=== PATIENT | female | born 1985 | race Caucasian/White ===

== ENCOUNTER 2017-06-20 10:10 | Inpatient (IN) | payer BC ==
[2017-06-20] MEDS ORDERED: Sodium Chloride 0.9% 10 ML Syringe FLUSH PRN (11:20)
[2017-06-20] MEDS ORDERED: Oxytocin/Lactated Ringers 10 UNIT/1,000 ML BAG IV SCH ×2 (11:30→17:30)
[2017-06-20] MEDS ORDERED: Lactated Ringers 1,000 ML IV SCH (11:30)
--- NOTE | 2017-06-20 13:23 | PCM.LDHP ---
L&D History of Present Illness - General Date of Service: 06/20/17 Admit Problem/Dx: Patient Status Order with Admit Dx/Problem 06/20/17 11:20 Patient Status [ADT] Routine Admission Diagnosis/Problem Admission Diagnosis/Problem 06/20/17 13:11 Minerva is a 31-year-old 2 para 1001 white female who is admitted for elective induction of labor today. Her CASPER is 06/25/2017 placing her at 39-2/7 weeks gestational age. Patient's CASPER is determined by 6-6/7 week ultrasound. This supported by a second ultrasound done at 22 weeks and a third ultrasound done at 35 weeks. At the present time she is 3 cm, 90% effaced, -3 station, mid position, very soft, bulging bag menjivar, anterior to mid position. Rupture membranes undertaken with resultant clear amniotic fluid. 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 Strep. Was not completely no 1 as it was approximated. She does have monthly cycles. Patient normal menarche. Her last delivery was on 10/09/2014 at 38 weeks gestational age after 16 hours of labor. She delivered a 7 lbs. 0 oz. female via in [place]. Child's name is Hodan. Her course has been relatively unremarkable. She is a centering program participant. Her first visit was on 2016 at 6-6/7 weeks' gestational age. She was seen on a regular basis in the centering program. Her weight gain was from a pre- weight of 221 pounds to a final weight of 227 pounds for a weight gain of a prosthesis 6 pounds. She made good fundal height growth and her vital signs remained stable throughout the care. Patient's group B strep screen is negative. She did have gestational diabetes but was under good control with diet modification and with the addition of glyburide in just the last 2 weeks. She is taking glyburide 2.5 mg tablets at bedtime.. She has history of hemorrhage during which been manageable. She plans to breast-feed. Patient wants to deliver naturally if possible. She had a rn clinical review delivery with no pain control and was discharged 4 hours after delivery with her last . Laboratory testing and cysts of blood which is A+ with a negative antibody screen. First hemoglobin is 13.7 g/dL. Platelets were 265, 000. She is rubella immune. RPR is nonreactive. Urine culture was unremarkable. Dates B surface antigen and HIV assays were negative. Patient's chlamydia and gonorrhea assays were both negative. Second trimester laboratory testing showed hemoglobin 12.7 and platelets of 229,000. Her diabetic screening test was elevated at 166. Her three-hour glucose tolerance test showed a fasting blood sugar of 97, a 1 hour blood sugar of 148, a 2 hour blood sugar of 210 and a three-hour glucose of 72. Her group B strep screen was negative. She was started on diet alone but towards the end of the her a.m. blood sugars were higher than desired and she was started on glyburide 2.5 mg daily at bedtime which led to normal blood sugars in a.m. Present under good control. Allergies none Medications: 1. Glyburide 2.5 mg at at bedtime 2. vitamins daily Past medical history: 1. Normal spontaneous vaginal delivery 2014 2. Cervical dysplasia status post LEEP 2008 3. Seasonal allergies Past surgical history: 1. LEEP 2008 Family history: Mother the baby has a cousin with spina bifida and a brother with congenital heart defects. Mom is alive and well but has had a questionable stroke and is on blood thinners. Vitamin well but smokes. One brother with heart defect as described above. 2 sisters with depression history. Paternal grandmother is alive and with history of stroke. Maternal grandfather is alive with macular degeneration. Also has had hip surgery. Paternal grandmother alive with breast cancer. She is status post mastectomy. Paternal grandfather with stent placement in his heart secondary to heart disease. No bleeding, clotting, anesthesia, her asthma problems noted in the family. Social history the patient is , lives in [facility]. She does not use significant alcohol, drugs or tobacco. 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 Review of systems: In general patient is having some contractions but is doing well. Skin: Negative Respiratory: No infectious or shortness of breath symptoms noted. Cardiovascular: No chest pain or exercise intolerance noted. Breasts: Changes also brings only patient plans to breast-feed GI: Negative : Changes socio-principal Musca skeletal: Occasional edema noted in the lower extremities Neurological: Negative Physical exam: In general patient is a well-nourished pleasant status distress. Skin is warm dry without lesions. HEENT, neck and back within normal limits Lungs are clear with good breath sounds in all lung tsai. Cardiovascular exam shows regular rate and rhythm without. Breast exam done at the beginning of and found to be normal. It is not repeated at this time. Abdomen is protuberant . Her fundal height is consistent with 39 weeks gestation. Cervix is as stated above. Extremities and neurological exam are grossly within normal limits. - Related Data Allergies/Adverse Reactions: Allergies Allergy/AdvReac Type Severity Reaction Status Date / Time banana Allergy Hives Verified 06/20/17 11:20 Past Medical History PROTECTION OFFICER History: Reports: Endocrine/Metabolic History: Reports: Diabetes, Gestational Dermatologic History: Reports: Eczema Social & Family History - Family History Family Medical History: Noncontributory H&P Review of Systems - Review of Systems: Review Of Systems: See Below L&D Exam - Exam Exam: See Below - Vital Signs Vital Signs: Last Vital Signs Temp 36.4 C 06/20/17 10:44 Pulse 109 H 06/20/17 10:44 Resp 20 06/20/17 10:44 BP 135/73 06/20/17 10:44 Pulse Ox 97 06/20/17 10:44 Weight: 104.372 kg - Patient Data Lab Results Last 24 hrs: Laboratory Results - last 24 hr 06/20/17 Range/Units 12:10 WBC 7.47 (3.98-10.04) K/mm3 RBC 4.63 (3.98-5.22) M/mm3 Hgb 13.8 (11.2-15.7) gm/L Hct 40.0 (34.1-44.9) % MCV 86.4 (79.4-94.8) fl MCH 29.8 (25.6-32.2) pg MCHC 34.5 (32.2-35.5) g/dl RDW Std Deviation 39.3 (36.4-46.3) fL Plt Count 205 (182-369) K/mm3 MPV 8.8 L (9.4-12.3) fl Neut % (Auto) 75.0 H (34.0-71.1) % Lymph % (Auto) 18.5 L (19.3-51.7) % Norton % (Auto) 5.2 (4.7-12.5) % Eos % (Auto) 0.9 (0.7-5.8) Baso % (Auto) 0.3 (0.1-1.2) % Neut # (Auto) 5.60 (1.56-6.13) K/mm3 Lymph # (Auto) 1.38 (1.18-3.74) K/mm3 Norton # (Auto) 0.39 H (0.24-0.36) K/mm3 Eos # (Auto) 0.07 (0.04-0.36) K/mm3 Baso # (Auto) 0.02 (0.01-0.08) K/mm3 Result Diagrams: 06/20/17 12:10 Problem List Initiated/Reviewed/Updated: Yes Orders Last 24hrs: Active Orders 24 hr Category Date Time Status Patient Status [ADT] Routine ADT 06/20/17 11:20 Active Activity as Tolerated [RC] PFP Care 06/20/17 11:20 Active Communication Order [RC] ASDIRECTED Care 06/20/17 11:20 Active Heart Tones [RC] ASDIRECTED Care 06/20/17 11:21 Active Notify Provider [RC] PFP Care 06/20/17 11:20 Active Notify Provider [RC] PRN Care 06/20/17 11:20 Active Peripheral IV Care [RC] . DIRECTED Care 06/20/17 11:21 Active Vital Signs [RC] PER UNIT ROUTINE Care 06/20/17 11:20 Active Regular Diet [DIET] Diet 06/20/17 Lunch Active Lactated Ringers [Ringers, Lactated] 1,000 ml Med 06/20/17 11:30 Active IV ASDIRECTED Oxytocin/Lactated Ringers [Pitocin in LR 10 Units/1,000 Med 06/20/17 11:30 Active ML] 10 unit in 1,000 ml IV .CONTINUOUS Sodium Chloride 0.9% [Saline Flush] Med 06/20/17 11:20 Active 10 ml FLUSH ASDIRECTED PRN Electronic Heart Tones Ext w TOCO [WOMSER] Oth 06/20/17 11:20 Ordered Routine Electronic Heart Tones Internal [WOMSER] Per Unit Oth 06/20/17 11:20 Ordered Routine Peripheral IV Insertion Adult [OM.PC] Routine Oth 06/20/17 11:20 Ordered Resuscitation Status Routine Resus Stat 06/20/17 11:20 Ordered Medication Orders Lactated Ringer's (Ringers, Lactated) 1,000 mls @ 100 mls/hr IV ASDIRECTED CLAUDIO Oxytocin/Lactated Ringer's (Pitocin In Lr 10 Units/1,000 Ml) 10 unit in 1,000 mls @ 500 mls/hr IV .CONTINUOUS CLAUDIO Sodium Chloride (Saline Flush) 10 ml FLUSH ASDIRECTED PRN PRN Reason: Keep Vein Open Assessment/Plan Comment:: Assessment: 1. 39-2/7 week intrauterine , elective induction of labor 2. Group B strep screen negative 3. Patient would like natural labor. 4. The patient plans to breast-feed 5. Rubella immune Plan: 1. Anticipate normal spontaneous vaginal delivery. 2. Natural childbirth per patient desire 3. Patient plans to breast-feed
[2017-06-20] MEDS ORDERED: Lidocaine 1% 50 ML MDV ONE (20:40)
[2017-06-20] MEDS ORDERED: Lidocaine 1% 50 ML MDV INJECT ONE (22:02)
--- NOTE | 2017-06-20 22:33 | PCM.SN ---
- Free Text/Narrative Note: Delivery note: Minerva is a 31-year-old 2 now para 2002 white female who was admitted at 39-2/7 weeks gestational age (CASPER 06/25/2017) (for an elective induction. She has a history of gestational diabetes on glyburide and was induced for this reason. On admission her cervix was 3 cm and 90% effaced. Patient was initially induced with artificial rupture of membranes which resulted in clear amniotic fluid. Pitocin was added to augment the labor. Patient did well and progressed continuously until complete cervical dilation by approximately 2145 hrs. She pushed 2 contractions and delivered a viable, [place], female infant with Apgars of 7 and 9, weight of 3360 g (7 pounds 6.5 ounces) in a left occiput anterior position. The baby delivered at 2157 hrs. on 06/20/2017. Baby was placed on mom's abdomen. The cord was allowed to pulsate until it stopped than was clamped 2 and cut. Cord blood was obtained. At the time of delivery Pitocin was started IV to facilitate increase in uterine tone and decrease likelihood of bleeding. The patient was noted to have second-degree laceration which was repaired after infiltration with approximately 8 mL of lidocaine 1%. It was repaired in a routine fashion using 3-0 Monocryl suture. Placenta delivered in a Abbott presentation. It appeared intact and complete and was discarded per patient preference. Estimated blood loss was 100 mL. Condition: Good. Patient plans to breast-feed.
[2017-06-20] MEDS ORDERED: Lanolin 100% Cream 7 GM Tube TOP PRN (22:35)
[2017-06-20] MEDS ORDERED: Benzocaine/Menthol 20%-0.5% Spray 56 GM Canister TOP PRN (22:35)
[2017-06-20] MEDS ORDERED: Witch Hazel Medicated Pads 100/Jar TOP PRN (22:35)
[2017-06-20] MEDS ORDERED: Docusate Sodium 100 MG Cap PO PRN (22:35)
[2017-06-20] MEDS ORDERED: Acetaminophen 325 MG Tab PO PRN (22:35)
[2017-06-20] MEDS: Ibuprofen 600 MG Tab PO PRN (22:48)
[2017-06-21] MEDS: Ibuprofen 600 MG Tab PO PRN ×4 (04:03→21:00)
[2017-06-21] MEDS ORDERED: Prenatal Multivitamin with Calcium/Folic Acid/Iron Tab PO SCH (09:00)
--- NOTE | 2017-06-21 09:56 | PCM.SN ---
- Free Text/Narrative Note: No concerns. Mimimal lochia, voiding well. Ambulating well Afeb, CSS Abdomen-soft, NT legs-NT A/P: PPD #1-normal recovery. Routine cares.
[2017-06-22] MEDS: Ibuprofen 600 MG Tab PO PRN (03:57)
--- NOTE | 2017-06-22 05:50 | PCM.DCSUM1 ---
Discharge Summary - Hospital Course Free Text/Narrative:: Minerva is a 31-year-old 2 now para 2002 white female who was admitted at 39-2/7 weeks gestational age (CASPER 06/25/2017) (for an elective induction. She has a history of gestational diabetes on glyburide and was induced for this reason. On admission her cervix was 3 cm and 90% effaced. Patient was initially induced with artificial rupture of membranes which resulted in clear amniotic fluid. Pitocin was added to augment the labor. Patient did well and progressed continuously until complete cervical dilation by approximately 2145 hrs. She pushed 2 contractions and delivered a viable, [place], female infant with Apgars of 7 and 9, weight of 3360 g (7 pounds 6.5 ounces) in a left occiput anterior position. The baby delivered at 2157 hrs. on 06/20/2017. Baby was placed on mom's abdomen. The cord was allowed to pulsate until it stopped than was clamped 2 and cut. Cord blood was obtained. At the time of delivery Pitocin was started IV to facilitate increase in uterine tone and decrease likelihood of bleeding. The patient was noted to have second-degree laceration which was repaired after infiltration with approximately 8 mL of lidocaine 1%. It was repaired in a routine fashion using 3-0 Monocryl suture. Placenta delivered in a Abbott presentation. It appeared intact and complete and was discarded per patient preference. Estimated blood loss was 100 mL. Condition: Good. Patient plans to breast-feed. patient's had some hemorrhoid problems with these are manageable. 9 hydrocortisone cream to the affected area. She is nursing without problems, ambulating well and voiding without concerns. She is desiring discharge home today. I'll up CBC has returned within normal limits for the period. - Discharge Data Discharge Date: 06/22/17 Discharge Disposition: Home, Self-Care 01 Condition: Good - Patient Instructions Diet: Regular Diet as Tolerated (ursing diet was increased calories and calcium as directed.) Activity: As Tolerated (No intercourse or tampons until bleeding resolves.) Driving: May Drive Today Showering/Bathing: May Shower (May take a bath) Notify Provider of: Fever, Increased Pain, Swelling and Redness, Nausea and/or Vomiting - Discharge Plan Home Medications: Home Meds Acetaminophen [Tylenol] 650 mg PO Q4H PRN tablet 06/22/17 [Rx] Docusate Sodium [Colace] 100 mg PO BID PRN cap 06/22/17 [Rx] Hydrocortisone [Hydrocortisone 2.5% Oint] 1 ml TOP TID PRN 06/22/17 [History] Ibuprofen [IJD: Ibuprofen] 600 mg PO Q4H PRN tablet 06/22/17 [Rx] Referrals: Jacob Willis MD [Physician] - (Return to clinicDr. Willis2 weeks.) - Discharge Summary/Plan Comment DC Time >30 min.: No Discharge Summary/Plan Comment: Discharge instructions: 1. Discharge home 2. Diet, activity and follow-up discussed with patient. Recommend nursing diet with increased calories and calcium. 3. Precautions given concern increased pain, bleeding, temperature, signs/ symptoms of DVT/PE. 4. Medications per home medication was printed, discussed with and given to the patient. 5. Return to clinic-Dr. Willis[facility] in 2 weeks. Diagnosis: Term -delivered Condition: Good - Patient Data Vitals - Most Recent: Last Vital Signs Temp 36.6 C 06/22/17 04:00 Pulse 90 06/22/17 04:00 Resp 18 06/22/17 04:00 BP 125/84 06/22/17 04:00 Pulse Ox 100 06/22/17 04:00 Weight - Most Recent: 104.372 kg I&O - Last 24 hours: Intake & Output 06/21/17 06/21/17 06/22/17 14:59 22:59 06:59 Intake Total 240 480 Balance 240 480 Lab Results - Last 24 hrs: Laboratory Results - last 24 hr 06/21/17 Range/Units 06:25 WBC 12.11 H (3.98-10.04) K/mm3 RBC 4.30 (3.98-5.22) M/mm3 Hgb 12.8 (11.2-15.7) gm/L Hct 37.8 (34.1-44.9) % MCV 87.9 (79.4-94.8) fl MCH 29.8 (25.6-32.2) pg MCHC 33.9 (32.2-35.5) g/dl RDW Std Deviation 39.8 (36.4-46.3) fL Plt Count 215 (182-369) K/mm3 MPV 9.4 (9.4-12.3) fl Med Orders - Current: Current Medications Acetaminophen (Tylenol) 650 mg PO Q4H PRN PRN Reason: mild pain or fever Last Admin: 06/21/17 15:50 Dose: 650 mg Benzocaine/Menthol (Dermoplast Pain Relief Platinum) 0 gm TOP ASDIRECTED PRN PRN Reason: Perineal Comfort Measure Last Admin: 06/20/17 22:49 Dose: 1 applic Docusate Sodium (Colace) 100 mg PO BID PRN PRN Reason: Constipation Emollient Ointment (Lansinoh Hpa) 0 gm TOP ASDIRECTED PRN PRN Reason: Sore Nipples Ibuprofen (Motrin) 600 mg PO Q4H PRN PRN Reason: Mild pain or fever Last Admin: 06/22/17 03:57 Dose: 600 mg Prenat Multivit/[place]/Iron/Folic Ac ( Plus Iron) 1 each PO DAILY CLAUDIO Last Admin: 06/21/17 09:31 Dose: 1 each Witjessica Chanel (Tucks) 1 pad TOP ASDIRECTED PRN PRN Reason: Hemorrhoid pain Last Admin: 06/20/17 22:49 Dose: 1 applic Discontinued Medications Lactated Ringer's (Ringers, Lactated) 1,000 mls @ 100 mls/hr IV ASDIRECTED CLAUDIO Last Admin: 06/20/17 17:34 Dose: 100 mls/hr Oxytocin/Lactated Ringer's (Pitocin In Lr 10 Units/1,000 Ml) 10 unit in 1,000 mls @ 500 mls/hr IV .CONTINUOUS CLAUDIO Oxytocin/Lactated Ringer's (Pitocin In Lr 10 Units/1,000 Ml) 10 unit in 1,000 mls @ 12 mls/hr IV TITRATE CLAUDIO; 2 MUNITS/MIN PRN Reason: Protocol Last Titration: 06/20/17 21:57 Dose: 0 munits/min, 0 mls/hr Lidocaine HCl (Xylocaine 1%) Confirm Administered Dose 50 ml .ROUTE .STK-MED ONE Stop: 06/20/17 20:41 Last Admin: 06/20/17 22:02 Dose: Not Given Lidocaine HCl (Xylocaine 1%) 10 ml INJECT ONETIME ONE Stop: 06/20/17 22:03 Last Admin: 06/20/17 22:49 Dose: 10 ml Sodium Chloride (Saline Flush) 10 ml FLUSH ASDIRECTED PRN PRN Reason: Keep Vein Open *Q Meaningful Use (DIS) - VTE *Q VTE Criteria *Q: - Stroke *Q Stroke Criteria *Q: - AMI *Q AMI Criteria *Q:
== END 2017-06-22 10:25 | disposition home or self-care (01) | DRG 560 ==
LOC: JD.OB 10:10 → JD.OBCHECK 10:10 → JD.OB 11:20 → OBSVTOIN 21:57 → JD.OB 21:57 → MERGE 06-25 14:55
PROVIDERS: ADMIT Obstetrics & Gynecology; ATTEND Obstetrics & Gynecology
PROC: 10E0XZZ Delivery of Products of Conception, External Approach (ICD-10-PCS; principal; 2017-06-20)
PROC: 10907ZC Drainage of Amniotic Fluid, Therapeutic from Products of Conception, Via Natural or Artificial Opening (ICD-10-PCS; 2017-06-20)
PROC: 0KQM0ZZ Repair Perineum Muscle, Open Approach (ICD-10-PCS; 2017-06-20)
DX: O24.425 Gestational diabetes mellitus in childbirth, controlled by oral hypoglycemic drugs (principal); O70.1 Second degree perineal laceration during delivery; O75.89 Other specified complications of labor and delivery; K64.9 Unspecified hemorrhoids; Z3A.39 39 weeks gestation of pregnancy; Z37.0 Single live birth
CPT/HCPCS: 36415; 59300; 59409; 85025; 85027; A9270-GY; J2590; J7120

== ENCOUNTER 2020-01-17 02:39 | Inpatient (IN) | payer BC ==
[2020-01-17] MEDS ORDERED: Nalbuphine 10 MG/ML Syringe IVPUSH PRN (06:12)
[2020-01-17] MEDS ORDERED: Sodium Chloride 0.9% 10 ML Syringe FLUSH PRN (06:12)
[2020-01-17] MEDS ORDERED: Lactated Ringers 1,000 ML IV SCH (06:15)
[2020-01-17] MEDS ORDERED: Oxytocin/Lactated Ringers 10 UNIT/1,000 ML BAG IV SCH (06:15)
--- NOTE | 2020-01-17 07:16 | PCM.LDHP ---
L&D History of Present Illness - General Date of Service: 01/17/20 Admit Problem/Dx: Patient Status Order with Admit Dx/Problem 01/17/20 06:43 Patient Status [ADT] Routine Admission Diagnosis/Problem Admission Diagnosis/Problem 01/17/20 07:06 Minerva is a 34-year-old 4 para 2-0-1-2 white female who was admitted on the a.m. of 01/17/2020 at 38-1/7 weeks gestational age with an CASPER of 2019 in active labor with advanced cervical dilation. Source of Information: Patient History Limitations: Reports: No Limitations - History of Present Illness Introduction:: Minerva is a 34-year-old 4 para 2-0-1-2 white female who was admitted on the a.m. of 01/17/2020 at 38-1/7 weeks gestational age with an CASPER of 01/30/2020 in active labor with advanced cervical dilation. Cervix presently is approximately 7 to 8 cm dilated, bulging bag menjivar is ruptured with resultant clear amniotic fluid. Heart tones are reassuring. Contractions occurring every 3 to 4 minutes, moderate to strong intensity. LEGAL MANAGER history: 4 para 2-0-1-2 with 1 spontaneous miscarriage at 6 weeks gestation in January 2019. Patient had menarche at approximately age 14. Cycles are monthly. No control at the time of conception. Her CASPER of 01/30/2020 is set by her LMP of 04/25/2019 and supported by at least 3 ultrasounds during the course of the . Patient's past obstetric history includes the followin. Female infant born 10/09/2013 at 38 weeks gestational age after 16 hours of labor7 pounds 0 ouncesorganchild's name is Hodan 2. Female infant born 212 2017-39-2/7 weeks gestational age after 10.5 hours of labor7 pounds 6 ounces named Enzo. 3. Miscarriage 01/16/2018 at 6 weeks gestation. course: First visit was at 11 weeks gestational age on 07/10/2019. Patient was seen on a regular basis. Her weight gain during the was from 215.6 pounds to 238 pounds for 23 pound increase. Patient had group B strep which was negative. She seemed to run a low ahead of schedule as far as her fundal height growth is concerned about her gestational diabetic evaluation was negative.3-hour GTT was normal. She plans to breast-feed. Tdap was given on 12/06/2019. She suffered from some migraine headaches during the course of the also had some hemorrhoids which she treated with hydrocortisone cream and diet change. Physician records showed Tdap on 12/06/2019. Hepatitis A immunizations were given in 2007 as were hepatitis B. Meningococcal was given in 2006. labs: Blood is a positive with a negative antibody screen. Hemoglobin at first visit was 13.5 g/dL. Platelets were 273,000. Rubella titer showed immunity. RPR was nonreactive. Urine culture was negative. Hepatitis B surface antigen was negative. HIV assay was negative. Patient declined GC and Chlamydia evaluation. Her 1 hour GTT was elevated and her 3-hour GTT was within normal limits. Her group B strep screen was negative. Allergies: None Medications: 1. vitamins 1 daily 2. Hydrocortisone 2.5% external cream used as needed for hemorrhoids. Past medical history: 1. Normal spontaneous vaginal every x2 2. Miscarriage x 1 3. History of cervical dysplasia status post loop electrosurgical excision procedure 4. Eczema. Past surgical history: 1. LEEP done in 2008 for cervical dysplasia Family history: Mother is alive and well. Has had a stroke and is on blood thinners. Father is alive and well but smokes. 1 brother with heart defect. 2 sisters with depression history. Maternal grandmother is alive but with history of stroke. Maternal grandfather alive with macular degeneration. Also has had hip surgery. Paternal grandmother is alive with breast cancer history status post mastectomy. Paternal grandfather is alive but has had heart problems and has had a stent placement in his heart. No bleeding, clotting, anesthesia, or asthma problems noted in the family. Also reports a cousin with spina bifida. Social history: Patient is . is Serafin. She is a care provider. She is a college graduate. They live in [place] with her family. She does not use any significant alcohol, drugs or tobacco. Review of systems: In general patient has no complaints. Wagner and these are getting moderate to severe in nature. HEENT, neck and back within normal limits Skin: Negative Lungs: No infectious symptoms or shortness of breath Cardiovascular: No chest pain or exercise intolerance Breasts: Patient plans to breast-feed. No lumps, changes in size, pain, dim pling, discharge or axillary or supraclavicular concerns. GI: Negative : changes noted. Musculoskeletal: Negative Neurological: Negative Physical exam: In general the patient is well-developed, well-nourished, pleasant female of stated age in no acute distress. Skin is warm dry without lesions. HEENT, neck and back within normal limits. Lungs are clear with good breath sounds in all lung tsai. Cardiovascular exam shows regular and rhythm without murmurs. Breast exam was deferred him been on first visit and found to be normal. Patient does plan to breast-feed. Abdomen is f is gravid. Last fundal height in clinic was 39 cm. Baby in vertex presentation by Gary and cervical exam. Genital exam per digital exam on most recent evaluation shows cervix to be 78 cm, 100% effaced, -1 station, vertex presentation. Extremities and neurological exam are grossly within normal limits. - Related Data Allergies/Adverse Reactions: Allergies Allergy/AdvReac Type Severity Reaction Status Date / Time banana Allergy Hives Verified 06/20/17 11:20 melon Allergy Hives Verified 01/17/20 06:45 Home Medications: Home Meds Vits #93/Iron Fum/FA [ Formula Tablet] 1 tab DAILY 01/17/20 [History] Past Medical History - Past Health History Medical/Surgical History: Denies Medical/Surgical History LEGAL MANAGER History: Reports: , Spontaneous Endocrine/Metabolic History: Reports: Diabetes, Gestational Dermatologic History: Reports: Eczema - Infectious Disease History Infectious Disease History: Reports: Human Papilloma Virus (HPV) - Past Surgical History Female Surgical History: Reports: LEEP Social & Family History - Family History Family Medical History: Noncontributory - Tobacco Use Smoking Status *Q: Never Smoker - Caffeine Use Caffeine Use: Reports: Coffee, Soda - Recreational Drug Use Recreational Drug Use: No H&P Review of Systems - Review of Systems: Review Of Systems: See Below L&D Exam - Exam Exam: See Below - Vital Signs Vital Signs: Last Vital Signs Temp 36.9 C 01/17/20 03:00 Pulse 98 01/17/20 03:00 Resp 16 01/17/20 03:00 BP 123/83 01/17/20 03:00 Pulse Ox 97 01/17/20 03:00 Weight: 108.681 kg - Patient Data Lab Results Last 24 hrs: Laboratory Results - last 24 hr 01/17/20 Range/Units 06:27 WBC 9.45 (3.98-10.04) K/mm3 RBC 4.44 (3.98-5.22) M/mm3 Hgb 13.4 (11.2-15.7) gm/dl Hct 39.1 (34.1-44.9) % MCV 88.1 (79.4-94.8) fl MCH 30.2 (25.6-32.2) pg MCHC 34.3 (32.2-35.5) g/dl RDW Std Deviation 41.2 (36.4-46.3) fL Plt Count 210 (182-369) K/mm3 MPV 9.1 L (9.4-12.3) fl Neut % (Auto) 80.5 H (34.0-71.1) % Lymph % (Auto) 13.2 L (19.3-51.7) % [place] % (Auto) 5.4 (4.7-12.5) % Eos % (Auto) 0.6 L (0.7-5.8) Baso % (Auto) 0.1 (0.1-1.2) % Neut # (Auto) 7.60 H (1.56-6.13) K/mm3 Lymph # (Auto) 1.25 (1.18-3.74) K/mm3 [place] # (Auto) 0.51 H (0.24-0.36) K/mm3 Eos # (Auto) 0.06 (0.04-0.36) K/mm3 Baso # (Auto) 0.01 (0.01-0.08) K/mm3 Result Diagrams: 01/17/20 06:27 Problem List Initiated/Reviewed/Updated: Yes Orders Last 24hrs: Active Orders 24 hr Category Date Time Status Patient Status [ADT] Routine ADT 01/17/20 06:43 Active Activity as Tolerated [RC] PFP Care 01/17/20 06:13 Active Communication Order [RC] ASDIRECTED Care 01/17/20 06:13 Active Heart Tones [RC] ASDIRECTED Care 01/17/20 06:13 Active Non Stress Test [RC] PER UNIT ROUTINE Care 01/17/20 06:13 Active Notify Provider [RC] PFP Care 01/17/20 06:13 Active Notify Provider [RC] PRN Care 01/17/20 06:13 Active Peripheral IV Care [RC] . DIRECTED Care 01/17/20 06:13 Active Vital Signs [RC] PER UNIT ROUTINE Care 01/17/20 06:13 Active CORONAVIRUS COVID-19 RAPID [MOLEC] Routine Lab 01/17/20 03:10 Received RAPID PLASMA REAGIN,RPR [CHEM] Routine Lab 01/17/20 06:27 Received Lactated Ringers [Ringers, Lactated] 1,000 ml Med 01/17/20 06:15 Active IV ASDIRECTED Nalbuphine [Nubain] Med 01/17/20 06:12 Active 10 mg IVPUSH Q2H PRN Oxytocin/Lactated Ringers [Pitocin in LR 10 Units/1,000 Med 01/17/20 06:15 Active ML] 10 unit in 1,000 ml IV .CONTINUOUS Sodium Chloride 0.9% [Saline Flush] Med 01/17/20 06:12 Active 10 ml FLUSH ASDIRECTED PRN Electronic Heart Tones Ext w TOCO [WOMSER] Oth 01/17/20 06:13 Ordered Routine Electronic Heart Tones Internal [WOMSER] Per Unit Oth 01/17/20 06:13 Ordered Routine Peripheral IV Insertion Adult [OM.PC] Routine Oth 01/17/20 06:13 Ordered Resuscitation Status Routine Resus Stat 01/17/20 06:12 Ordered Medication Orders Oxytocin/Lactated Ringer's (Pitocin In Lr 10 Units/1,000 Ml) 10 unit in 1,000 mls @ 500 mls/hr IV .CONTINUOUS CLAUDIO Lactated Ringer's (Ringers, Lactated) 1,000 mls @ 100 mls/hr IV ASDIRECTED CLAUDIO Nalbuphine HCl (Nubain) 10 mg IVPUSH Q2H PRN PRN Reason: Pain Sodium Chloride (Saline Flush) 10 ml FLUSH ASDIRECTED PRN PRN Reason: Keep Vein Open Assessment/Plan Comment:: 1. 38-1/7-week intrauterine , active labor with advanced cervical dilation 2. Group B strep negative 3. Patient desires natural labor 4. 3-hour GTT was normal 5. Rubella immune 6. Given during Plan: 1. Anticipate normal spontaneous vaginal delivery 2. Natural labor per patient desire 3. CBC and RPR upon admission per protocol 4. Routine labor care.
[2020-01-17] MEDS: Ibuprofen 600 MG Tab PO PRN ×2 (08:30→17:12)
--- NOTE | 2020-01-17 09:52 | PCM.SN.2 ---
- Free Text/Narrative Note: Delivery note: Minerva is a 34-year-old 4 para 2-0-1-2 white female who was admitted on the a.m. of 01/17/2020 at 38-1/7 weeks gestational age with an CASPER of 01/30/2020 in active labor with advanced cervical dilation. Underwent artificial rupture membranes with resultant clear amniotic fluid. She quickly progressed to complete cervical dilation. She pushed for 2 contractions and delivered a viable, monterroso, male with Apgars of 8 and 9, a length of 21 inches and a weight of 3840 g (8 pounds 7.5 ounces) at 0743 hrs. on 01/17/2020. He was placed on mom's abdomen. Nose and mouth were bulb suctioned and the baby was dried with a warm blanket. Pitocin was increased to 500 cc/h to facilitate in crease in uterine tone and decrease likelihood of bleeding. Umbilical cord was allowed to pulsate for approximately 2 to 3 minutes and then was clamped x2 and cut by the patient herself. The umbilical cord had 3 vessels present within it. Patient was noted to have a small superficial vaginal laceration which was repaired with a single [id number]-[id number] suture of 3-0 Monocryl. The placenta delivered in a spontaneous fashion in a presentation. It appeared intact and complete and was discarded per patient desire. Estimated blood loss was 100 cc. Patient plans to breast-feed. Condition: Good .
[2020-01-17] MEDS ORDERED: Hydrocortisone 1% Crm 30 GM Tube TOP ONE (09:58)
[2020-01-17] MEDS ORDERED: Witch Hazel Medicated Pads 40/Jar TOP PRN (09:58)
[2020-01-17] MEDS ORDERED: Acetaminophen/oxyCODONE 325-5 MG Tab PO PRN ×2 (09:58)
[2020-01-17] MEDS ORDERED: Benzocaine/Menthol 20%-0.5% Spray 56 GM Canister TOP PRN (09:58)
[2020-01-17] MEDS ORDERED: Docusate Sodium 100 MG Cap PO PRN (09:58)
[2020-01-18] MEDS: Ibuprofen 600 MG Tab PO PRN ×2 (00:22→10:48)
[2020-01-18] MEDS ORDERED: Acetaminophen 325 MG Tab PO PRN (00:27)
--- NOTE | 2020-01-18 06:00 | PCM.DCSUM1 ---
Discharge Summary - Hospital Course Free Text/Narrative:: Minerva is a 34-year-old 4 para 2-0-1-2 white female who was admitted on the a.m. of 01/17/2020 at 38-1/7 weeks gestational age with an CASPER of 01/30/2020 in active labor with advanced cervical dilation. Underwent artificial rupture membranes with resultant clear amniotic fluid. She quickly progressed to complete cervical dilation. She pushed for 2 contractions and delivered a viable, monterroso, male with Apgars of 8 and 9, a length of 21 inches and a weight of 3840 g (8 pounds 7.5 ounces) at 0743 hrs. on 01/17/2020. He was placed on mom's abdomen. Nose and mouth were bulb suctioned and the baby was dried with a warm blanket. Pitocin was increased to 500 cc/h to facilitate increase in uterine tone and decrease likelihood of bleeding. Umbilical cord was allowed to pulsate for approximately 2 to 3 minutes and then was clamped x2 and cut by the patient herself. The umbilical cord had 3 vessels present within it. Patient was noted to have a small superficial vaginal laceration which was repaired with a single [id number] suture of 3-0 Monocryl. The placenta delivered in a spontaneous fashion in a presentation. It appeared intact and complete and was discarded per patient desire. Estimated blood loss was 100 cc. Patient plans to breast-feed. patient is done well. She is ambulating well, has had minimal lochia, is voiding without problems. Has had some hemorrhoidal discomfort but this is been treated with hydrocortisone cream topically. She is desiring discharge home. Condition: Good. Diagnosis: Stroke: No - Discharge Data Discharge Date: 01/18/20 Discharge Disposition: Home, Self-Care 01 Condition: Good - Referral to Home Health Primary Care Physician: Jacob Willis MD - Patient Instructions Diet: Regular Diet as Tolerated (Nursing diet with increased calories and calcium as recommended) Activity: As Tolerated (No intercourse or tampons until bleeding resolves) Driving: May Drive Today Showering/Bathing: May Shower Showering/Bathing, Other: May take a bath Notify Provider of: Fever, Increased Pain, Swelling and Redness, Nausea and/or Vomiting - Discharge Plan Home Medications: Home Meds Vits #93/Iron Fum/FA [ Formula Tablet] 1 tab DAILY 01/17/20 [History] Acetaminophen [Tylenol] 650 mg PO Q4H PRN tablet 01/18/20 [Rx] Ibuprofen [Motrin] 600 mg PO Q4H PRN tablet 01/18/20 [Rx] Referrals: Jacob Willis MD [Primary Care Provider] - - Discharge Summary/Plan Comment DC Time >30 min.: No Discharge Summary/Plan Comment: Discharge instructions: 1. Discharge home 2. Diet, activity and follow-up discussed with patient. Recommend nursing diet with increased calories and calcium. 3. Precautions given concern increased pain, bleeding, temperature, signs/symptoms of DVT/PE. 4. Medications per home medication was printed, discussed with and given to the patient. 5. Return to clinic-Dr. Willis or Marleny Rodriguez, nurse practitioner-[facility] in 2 weeks. Diagnosis: Term -delivered Condition: Good - Patient Data Vitals - Most Recent: Last Vital Signs Temp 37.2 C 01/17/20 19:33 Pulse 85 01/18/20 03:06 Resp 16 01/18/20 03:06 BP 127/78 01/18/20 03:06 Pulse Ox 98 01/18/20 03:06 Weight - Most Recent: 108.681 kg I&O - Last 24 hours: Intake & Output 01/17/20 01/17/20 01/18/20 14:59 22:59 06:59 Intake Total 120 420 Balance 120 420 Lab Results - Last 24 hrs: Laboratory Results - last 24 hr 01/17/20 01/17/20 Range/Units 06:27 06:27 WBC 9.45 (3.98-10.04) K/mm3 RBC 4.44 (3.98-5.22) M/mm3 Hgb 13.4 (11.2-15.7) gm/dl Hct 39.1 (34.1-44.9) % MCV 88.1 (79.4-94.8) fl MCH 30.2 (25.6-32.2) pg MCHC 34.3 (32.2-35.5) g/dl RDW Std Deviation 41.2 (36.4-46.3) fL Plt Count 210 (182-369) K/mm3 MPV 9.1 L (9.4-12.3) fl Neut % (Auto) 80.5 H (34.0-71.1) % Lymph % (Auto) 13.2 L (19.3-51.7) % [place] % (Auto) 5.4 (4.7-12.5) % Eos % (Auto) 0.6 L (0.7-5.8) Baso % (Auto) 0.1 (0.1-1.2) % Neut # (Auto) 7.60 H (1.56-6.13) K/mm3 Lymph # (Auto) 1.25 (1.18-3.74) K/mm3 [place] # (Auto) 0.51 H (0.24-0.36) K/mm3 Eos # (Auto) 0.06 (0.04-0.36) K/mm3 Baso # (Auto) 0.01 (0.01-0.08) K/mm3 RPR Non-reactive (NONREACTIVE) Med Orders - Current: Current Medications Acetaminophen (Tylenol) 650 mg PO Q4H PRN PRN Reason: Pain/Fever Benzocaine/Menthol (Dermoplast Pain Relief [place]) 0 gm TOP ASDIRECTED PRN PRN Reason: Perineal Comfort Measure Docusate Sodium (Colace) 100 mg PO BID PRN PRN Reason: Constipation Ibuprofen (Motrin) 600 mg PO Q4H PRN PRN Reason: Mild pain or fever Last Admin: 01/18/20 00:22 Dose: 600 mg Documented by: Oxycodone/Acetaminophen (Percocet 325-5 Mg) 1 tab PO Q4H PRN PRN Reason: Pain (moderate 4-6) Last Admin: 01/17/20 20:11 Dose: 1 tab Documented by: Sachin Kline) 1 pad TOP ASDIRECTED PRN PRN Reason: Perineal Comfort Measure Last Admin: 01/17/20 10:21 Dose: 1 pad Documented by: Discontinued Medications Hydrocortisone (Hydrocortisone 1% Crm) 2 gm TOP ASDIRECTED ONE Stop: 01/17/20 09:59 Last Admin: 01/17/20 10:25 Dose: 1 applic Documented by: Oxytocin/Lactated Ringer's (Pitocin In Lr 10 Units/1,000 Ml) 10 unit in 1,000 mls @ 500 mls/hr IV .CONTINUOUS CLAUDIO Last Admin: 01/17/20 07:44 Dose: 500 mls/hr Documented by: Lactated Ringer's (Ringers, Lactated) 1,000 mls @ 100 mls/hr IV ASDIRECTED CLAUDIO Nalbuphine HCl (Nubain) 10 mg IVPUSH Q2H PRN PRN Reason: Pain Oxycodone/Acetaminophen (Percocet 325-5 Mg) 2 tab PO Q4H PRN PRN Reason: Pain (severe 7-10) Last Admin: 01/17/20 10:20 Dose: 2 tab Documented by: Sodium Chloride (Saline Flush) 10 ml FLUSH ASDIRECTED PRN PRN Reason: Keep Vein Open
== END 2020-01-18 19:25 | disposition home or self-care (01) | DRG 560 ==
LOC: JD.OB 02:39 → JD.OBCHECK 02:39 → JD.OB 06:43 → OBSVTOIN 07:43 → JD.OB 07:44
PROVIDERS: ADMIT Obstetrics & Gynecology; ATTEND Obstetrics & Gynecology
PROC: 10E0XZZ Delivery of Products of Conception, External Approach (ICD-10-PCS; principal; 2020-01-17)
PROC: 10907ZC Drainage of Amniotic Fluid, Therapeutic from Products of Conception, Via Natural or Artificial Opening (ICD-10-PCS; 2020-01-17)
PROC: 0UQGXZZ Repair Vagina, External Approach (ICD-10-PCS; 2020-01-17)
DX: O70.0 First degree perineal laceration during delivery (principal); Z3A.38 38 weeks gestation of pregnancy; Z37.0 Single live birth; Z20.828 Contact with and (suspected) exposure to other viral communicable diseases
CPT/HCPCS: 36415; 59025; 59409; 85025; 86592; A9270-GY; J2590

== ENCOUNTER 2024-01-16 22:50 | Emergency (ER) | payer BC ==
[2024-01-16 23:42] LABS: BASOPHILS PERCENT AUTO 0.3 % (0.0-1.0); EOSINOPHILS ABSOLUTE AUTO 0.2 K/mm3 (0.0-0.4); EOSINOPHILS PERCENT AUTO 3.4 % (0.0-6.0); HEMOGLOBIN 14.2 gm/dl (12.0-16.0); IMMATURE GRAN ABSOLUTE AUTO 0.02 K/mm3 (0.00-0.05); IMMATURE GRAN PERCENT AUTO 0.3 % (0.0-0.4); LYMPHOCYTES ABSOLUTE AUTO 2.2 K/mm3 (1.0-4.8); LYMPHOCYTES PERCENT AUTO 34.3 % (24.0-44.0); MEAN CORPUSCULAR HEMOGLOBIN 30.4 pg (28.0-32.0); MEAN CORPUSCULAR HGB CONC 35.5 g/dl (32.0-36.0); MEAN CORPUSCULAR VOLUME 85.7 fl (83.0-99.0); MEAN PLATELET VOLUME 8.2 fl (9.4-12.3); MONOCYTES ABSOLUTE AUTO 0.4 K/mm3 (0.0-0.8); NEUTROPHILS ABSOLUTE AUTO 3.6 K/mm3 (1.8-7.7); NEUTROPHILS PERCENT AUTO 55.7 % (41.0-71.0); PLATELET COUNT,PLT 263 K/mm3 (150-400); RED BLOOD CELL COUNT 4.67 M/mm3 (4.10-5.30); WHITE BLOOD CELL COUNT,WBC 6.47 K/mm3 (3.9-11.3)
[2024-01-17] LABS: ALANINE AMINOTRANSFERASE,ALT 44 U/L (14-59); ALBUMIN 3.5 g/dl (3.4-5.0); ALKALINE PHOSPHATASE 52 U/L (46-116); ANION GAP 11.8 (5-15); ASPARTATE AMNIOTRANSFERASE,AST 19 U/L (15-37); BILIRUBIN TOTAL 0.3 mg/dL (0.2-1.0); BLOOD UREA NITROGEN,BUN 14 mg/dL (7-18); BUN/CREATININE RATIO 12.7 (14-18); CALCIUM 8.9 mg/dL (8.5-10.1); CARBON DIOXIDE,CO2 24 mEq/L (21-32); CHLORIDE,CL 106 mEq/L (98-107); CREATININE 1.1 mg/dL (0.55-1.02); EST CRCL DRUG DOSING (CG) 57.92 mL/min; ESTIMATED GFR 66 mL/min (>60); GLUCOSE RANDOM 138 mg/dL (70-99); POTASSIUM,K 3.8 mEq/L (3.5-5.1); SODIUM,NA 138 mEq/L (136-145)
[2024-01-17 00:06] LABS: TROPONIN I HIGH SENSITIVITY < 4 pg/mL (<=51)
== END 2024-01-17 01:11 | disposition home or self-care (01) ==
LOC: JD.ED 22:50
DX: R07.9 Chest pain, unspecified (principal); Z91.018 Allergy to other foods; Z79.899 Other long term (current) drug therapy
CPT/HCPCS: 36415; 71045; 71045-26; 80053; 84484; 84703; 85025; 93005; 93010; 99284; 99285